=== PATIENT | female | born 1965 | race African-American/Black ===

== ENCOUNTER → 2019-02-08 | Day surgery (SDC) | payer BC ==
[~2019-02-08] MED LIST: ACET325T9 PO; ATOR20TA58 PO; HYDR12.575 PO; IV RINGERS,LACTATED 1000ML 1,000 ML IV ONE; LIDOCAINE 2% PF 5 ML VIAL. ONE; OMEP40CA5 PO; PARO20TA3 PO; PHEN15CA2 PO; PROPOFOL 40 ML IV ONE; TRIA10.8 NS
[2019-02-08 12:05] VITALS: BP 126/72
--- NOTE | 2019-02-08 12:14 | PREOP HP ---
DATE OF SERVICE: 02/08/2019 REQUESTING PHYSICIAN: Dr. Estephania Christianson. PRIMARY CARE PHYSICIAN: Dr. Estephania Christianson. REASON FOR PROCEDURE: Screening colonoscopy. HISTORY OF PRESENT ILLNESS: This is a 53-year-old female who presents today for screening colonoscopy. She reports 2 bowel movements a day. Denies family history of colon cancer. ALLERGIES: 1. DARVOCET. 2. PENICILLIN. 3. BACTRIM. MEDICATIONS: 1. Omeprazole. 2. Paroxetine. 3. Hydrochlorothiazide. 4. Phentermine. 5. Atorvastatin. 6. Nasacort. 7. Tylenol. PAST SURGICAL HISTORY: 1. Tonsillectomy. 2. Sinus surgery. 3. Hysterectomy. PAST MEDICAL HISTORY: 1. Significant for colonoscopy with Dr. Dao in 2006. 2. Significant for an upper endoscopy with Dr. Kearney in 2011. 3. Reflux. 4. Clostridium difficile colitis. 5. Gastritis. 6. Helicobacter pylori. 7. Stomach ulcer. 8. Anxiety. 9. Asthma. 10. Depression. 11. Endometriosis. 12. High blood pressure. 13. High cholesterol. 14. Sleep apnea. FAMILY MEDICAL HISTORY: She denies any family history of colon cancer. There is a history of breast cancer in her grandmother. SOCIAL HISTORY: She has a prior history of alcohol consumption. She denies tobacco or IV drug abuse. REVIEW OF SYSTEMS: A 13-point review of systems was done. It is positive for headaches, joint stiffness, snoring, back pain, anxiety, bloating, change in bowel habits, food intolerance, nausea, vomiting, abdominal pain, constipation, diarrhea, flatulence and heartburn. PHYSICAL EXAMINATION: VITAL SIGNS: She is afebrile and her vital signs are stable. GENERAL: She is an obese -[place] female in no apparent distress. HEENT: Oropharynx is clear. CARDIOVASCULAR: S1, S2. LUNGS: Clear. ABDOMEN: Normoactive bowel sounds, soft, nontender, nondistended. EXTREMITIES: No edema. NEUROLOGIC: Awake, alert and oriented x 3. ASSESSMENT AND PLAN: 1. Colorectal cancer screening. The risks and benefits of the procedure including bleeding, perforation, non-diagnosis and sedation were explained and she has agreed to proceed. Thank you for allowing me to participate in the care of this patient. DONG VREA MD DR: RAY/kuldip JOB#: [id number] / [id number]
--- NOTE | 2019-02-12 08:06 | PATHOLOGY ---
[facility] Accession Number: [id number] . 01 Material submitted: . PART A: colon - SIGMOID POLYP BIOPSY. Modifiers: sigmoid PART B: rectum - RECTAL POLYP BIOPSY . 01 Clinical history: . Screening . 02 Diagnosis: A. Colon biopsies, sigmoid polyp: - Segments of colonic mucosa containing several hyperplastic mucosal-associated lymphoid aggregates. . B. Colorectal biopsies, rectal polyps: - Sessile serrated polyp/adenoma. - Hyperplastic polyps, with few mucosal-associated lymphoid aggregates. (JPM:[facility] 02/09/2019) P/02/09/2019 . 02 Comment: Sections of the sigmoid polyp biopsy reveal segments of colonic mucosa containing several hyperplastic mucosal-associated lymphoid aggregates. There are no adenomatous changes or evidence of malignancy. . Sections of the rectal biopsy reveal a sessile serrated polyp/adenoma and two hyperplastic polyps containing a few mucosal-associated lymphoid aggregates. There is no high-grade dysplasia or evidence of malignancy. (JPM:[facility] 02/09/2019) . 02 Electronically signed: . Chucky Brunner MD, Pathologist NPI- [id number] . 01 Gross description: . A. Received in formalin labeled "Taffe, Kerrie, sigmoid polyp BX," are 2 segments of maya soft tissue measuring 0.9 x 0.3 x 0.2 cm in aggregate dimensions and ranging from 0.4 to 0.5 cm in maximum dimension. The specimen is submitted entirely in cassette A1. . B. Received in formalin labeled "Taffe, Kerrie, rectal polyps BX," are 4 segments of maya soft tissue measuring 1.0 x 0.9 x 0.3 cm in aggregate dimensions and ranging from 0.4 to 0.5 cm in maximum dimension. The specimen is submitted entirely in cassette B1. (TSD; 02/08/2019) TOB/TOB . 02 Pathologist provided ICD-10: D12.8, K62.1 . 02 CPT . 287277, 053116 Specimen Comment: A courtesy copy of this report has been sent to Specimen Comment: [phone], . Specimen Comment: Report sent to / DR LINO Performed at: 01 [facility] [address] [place] [address] [address], [place] [id number] MD Lisandro Key MD Phone: [phone] Performed at: 02 [facility] [address] [place], [place] [id number] MD Chucky Brunner MD Phone: [phone]
== END ==
LOC: SURG 09:59
PROVIDERS: ATTEND Internal Medicine Gastroenterology
DX: Z12.11 Encounter for screening for malignant neoplasm of colon (principal); K62.1 Rectal polyp; D12.5 Benign neoplasm of sigmoid colon; K57.30 Diverticulosis of large intestine without perforation or abscess without bleeding; K64.0 First degree hemorrhoids; K29.70 Gastritis, unspecified, without bleeding; F41.9 Anxiety disorder, unspecified; J45.909 Unspecified asthma, uncomplicated; F32.9 Major depressive disorder, single episode, unspecified; E78.00 Pure hypercholesterolemia, unspecified; Z80.0 Family history of malignant neoplasm of digestive organs; Z88.1 Allergy status to other antibiotic agents; Z88.0 Allergy status to penicillin; Z88.8 Allergy status to other drugs, medicaments and biological substances; Z90.710 Acquired absence of both cervix and uterus; Z98.890 Other specified postprocedural states; Z72.89 Other problems related to lifestyle
CPT/HCPCS: 45380; J2001; J2704; 88305